=== PATIENT | male | born 1955 | race Two or more races ===

== ENCOUNTER 2016-10-27 22:42 | Observation (INO) | payer MEDICAID ==
[~2016-10-27 22:42] MED LIST: ADULT ASPIRIN81 MG PO; ADULT LOW DOSE81 MG PO; AMOXIL PO; ANAFRANIL75 MG PO; ATORVASTATIN CA20 M1 PO; AUGMENTIN 875-11 TAB PO; BENADRYL25 MG PO; BUDEPRION SR150 M1 PO; BYSTOLIC2.5 MG PO; BYSTOLIC5 MG PO; CATAPRES0.2 MG PO; CLARITIN10 M5 PO; EFFIENT10 MG/TAB PO; FLEXERIL10 MG PO; HYDROCODONE/APA1 CAP PO; LIPITOR20 MG PO; LORTAB 5/5001 EA PO; MELATONIN3 M2 PO; MOTRIN800 MG PO; NITROSTAT0.4 MG SL; NORCO 5/325 TAB1 TAB PO; NORVASC2.5 MG PO; NORVASC5 M1 PO; OMEPRAZOLE20 M2 PO; PERCOCET 5/3251 TAB PO; PRILOSEC2.5 MG PO; PRILOSEC20 MG PO; REMERON45 MG; REMERON45 MG PO; WELLBUTRIN SR150 MG; ZOLOFT; ZOLOFT100 MG; ZOLOFT100 MG PO
[2016-10-27 23:06] LABS: BASO % 1.1 % (0-2); BASO ABSOLUTE COUNT 0.1 tho/cmm (0.0-0.2); EOS % 4.4 % (0-7); EOSINOPHIL ABSOLUTE COUNT 0.4 tho/cmm (0.0-0.7); HCT-HEMATOCRIT 43.9 % (36.0-53.5); HGB-HEMOGLOBIN 14.6 gm/dl (13.5-17.0); IMMATURE GRANULOCYTES ABSOLUTE 0.01 tho/cmm (0-0.03); IMMATURE GRANULOCYTES PERCENT 0.1 % (0-0.3); LYMPH % 30.4 % (20-45); LYMPH ABSOLUTE COUNT 2.9 tho/cmm (0.8-4.5); MCH (MEAN CORPUSCULAR HGB) 27.6 pg (28.0-32.0); MCHC MEAN CORPUSCULAR HGB CONC 33.3 % (32.0-36.0); MEAN PLATELET VOLUME 10.3 cmc (9.4-12.4); MONO % 9.9 % (0-12); MONOCYTE ABSOLUTE COUNT 0.9 tho/cmm (0.0-1.2); NEUTROPHIL ABSOLUTE COUNT 5.1 tho/cmm (1.6-8.0); NEUTROPHIL-AUTOMATED 5.1 tho/cmm (1.6-8.0); NEUTROPHILS % 54.1 % (40-80); PLATELET COUNT 298 tho/cmm (150-450); RED BLOOD COUNT 5.29 mil/cmm (4.40-5.70); RED CELL DISTRIBUTION WIDTH 13.5 % (12.4-16.4); WHITE BLOOD COUNT 9.5 tho/cmm (4.0-10.0)
[2016-10-27 23:20] LABS: ANION GAP 11 mmol/L (0-20); BLOOD UREA NITROGEN 20 mg/dl (6-24); CARBON DIOXIDE-VENOUS 27 mmol/L (22-32); CHLORIDE 103 mmol/l (96-110); CREATININE 1.07 mg/dl (0.60-1.30); GLUCOSE 87 mg/dL (70-110); SODIUM 137 mmol/L (135-145); eGFR VALUE FOR BLACK 87 mL/Min
[2016-10-28] MEDS ORDERED: ASPIRIN81 M1 PO (01:02)
[2016-10-28] MEDS ORDERED: NITROGLYCERIN0.4 M2 SL (01:04)
[2016-10-28 01:40] LABS: MAGNESIUM 2.4 mg/dl (1.8-2.6)
[2016-10-28 11:04] LABS: ANION GAP 9 mmol/L (0-20); BLOOD UREA NITROGEN 15 mg/dl (6-24); CALCIUM 8.9 mg/dl (8.5-10.5); CARBON DIOXIDE-VENOUS 28 mmol/L (22-32); CHLORIDE 106 mmol/l (96-110); CREATININE 0.85 mg/dl (0.60-1.30); GLUCOSE 87 mg/dL (70-110); POTASSIUM 3.9 mmol/L (3.7-5.1); SODIUM 139 mmol/L (135-145); eGFR VALUE FOR BLACK >90 mL/Min
[2016-10-29 06:30] LABS: BASO % 0.7 % (0-2); BASO ABSOLUTE COUNT 0.1 tho/cmm (0.0-0.2); EOS % 3.4 % (0-7); EOSINOPHIL ABSOLUTE COUNT 0.3 tho/cmm (0.0-0.7); HCT-HEMATOCRIT 44.2 % (36.0-53.5); HGB-HEMOGLOBIN 14.5 gm/dl (13.5-17.0); IMMATURE GRANULOCYTES ABSOLUTE 0.02 tho/cmm (0-0.03); IMMATURE GRANULOCYTES PERCENT 0.2 % (0-0.3); LYMPH % 14.9 % (20-45); LYMPH ABSOLUTE COUNT 1.4 tho/cmm (0.8-4.5); MCH (MEAN CORPUSCULAR HGB) 26.9 pg (28.0-32.0); MCHC MEAN CORPUSCULAR HGB CONC 32.8 % (32.0-36.0); MCV (MEAN CELL VOLUME) 81.9 fl (82.0-96.0); MEAN PLATELET VOLUME 10.3 cmc (9.4-12.4); MONOCYTE ABSOLUTE COUNT 1.1 tho/cmm (0.0-1.2); NEUTROPHIL ABSOLUTE COUNT 6.7 tho/cmm (1.6-8.0); NEUTROPHIL-AUTOMATED 6.7 tho/cmm (1.6-8.0); NEUTROPHILS % 69.8 % (40-80); PLATELET COUNT 269 tho/cmm (150-450); RED CELL DISTRIBUTION WIDTH 13.6 % (12.4-16.4); WHITE BLOOD COUNT 9.7 tho/cmm (4.0-10.0)
[2016-10-29 06:57] LABS: ANION GAP 10 mmol/L (0-20); BLOOD UREA NITROGEN 16 mg/dl (6-24); CALCIUM 8.4 mg/dl (8.5-10.5); CARBON DIOXIDE-VENOUS 26 mmol/L (22-32); CHLORIDE 106 mmol/l (96-110); CREATININE 0.88 mg/dl (0.60-1.30); GLUCOSE 108 mg/dL (70-110); SODIUM 138 mmol/L (135-145); eGFR VALUE FOR BLACK >90 mL/Min
[2016-10-29] MEDS ORDERED: BRILINTA90 M1 PO (10:25)
[2016-10-29] MEDS ORDERED: TOPROL XL25 M1 PO (10:26)
[2016-10-29] MEDS ORDERED: PRINIVIL5 M1 PO (10:28)
== END 2016-10-29 14:00 ==
LOC: EDMED 22:42 → EMR2 10-28 00:29 → PCUA 10-28 01:42
PROVIDERS: Emergency Medicine; Internal Medicine Cardiovascular Disease; ADMIT Internal Medicine
PROC: B2111ZZ Fluoroscopy of Multiple Coronary Arteries using Low Osmolar Contrast (ICD-10-PCS; principal; 2016-10-28)
PROC: 027034Z Dilation of Coronary Artery, One Artery with Drug-eluting Intraluminal Device, Percutaneous Approach (ICD-10-PCS; 2016-10-28)
DX: I16.0 Hypertensive urgency (principal); I21.4 Non-ST elevation (NSTEMI) myocardial infarction; E78.5 Hyperlipidemia, unspecified; R07.9 Chest pain, unspecified; I25.10 Atherosclerotic heart disease of native coronary artery without angina pectoris; Z82.49 Family history of ischemic heart disease and other diseases of the circulatory system; Z95.5 Presence of coronary angioplasty implant and graft; Z98.890 Other specified postprocedural states
CPT/HCPCS: C1769; C1874; C1887; C1894; C9600-LD; G0378; J1644; J1650; J2250; J3010; J7030; Q9967

== ENCOUNTER 2016-11-11 16:21 | Observation (INO) | payer MEDICAID ==
[~2016-11-11 16:21] MED LIST changes: +ASPIRIN81 M1 PO; +BRILINTA90 M1 PO; +NITROGLYCERIN0.4 M2 SL; +PRINIVIL5 M1 PO; +TOPROL XL25 M1 PO
[2016-11-11] MEDS ORDERED: TOPROL XL25 M1 PO (16:36)
[2016-11-11 16:41] LABS: BASO % 0.8 % (0-2); BASO ABSOLUTE COUNT 0.1 tho/cmm (0.0-0.2); EOS % 2.9 % (0-7); EOSINOPHIL ABSOLUTE COUNT 0.3 tho/cmm (0.0-0.7); HCT-HEMATOCRIT 44.8 % (36.0-53.5); IMMATURE GRANULOCYTES ABSOLUTE 0.02 tho/cmm (0-0.03); IMMATURE GRANULOCYTES PERCENT 0.2 % (0-0.3); LYMPH % 27.1 % (20-45); LYMPH ABSOLUTE COUNT 2.4 tho/cmm (0.8-4.5); MCH (MEAN CORPUSCULAR HGB) 27.2 pg (28.0-32.0); MCHC MEAN CORPUSCULAR HGB CONC 33.5 % (32.0-36.0); MCV (MEAN CELL VOLUME) 81.3 fl (82.0-96.0); MEAN PLATELET VOLUME 10.3 cmc (9.4-12.4); MONO % 10.3 % (0-12); MONOCYTE ABSOLUTE COUNT 0.9 tho/cmm (0.0-1.2); NEUTROPHIL ABSOLUTE COUNT 5.3 tho/cmm (1.6-8.0); NEUTROPHIL-AUTOMATED 5.3 tho/cmm (1.6-8.0); NEUTROPHILS % 58.7 % (40-80); PLATELET COUNT 310 tho/cmm (150-450); RED BLOOD COUNT 5.51 mil/cmm (4.40-5.70); RED CELL DISTRIBUTION WIDTH 13.1 % (12.4-16.4)
[2016-11-11] MEDS ORDERED: PEPCID20 M1 PO (16:56)
[2016-11-11 16:58] LABS: ANION GAP 12 mmol/L (0-20); BLOOD UREA NITROGEN 23 mg/dl (6-24); CALCIUM 8.8 mg/dl (8.5-10.5); CARBON DIOXIDE-VENOUS 27 mmol/L (22-32); CHLORIDE 105 mmol/l (96-110); CREATININE 0.95 mg/dl (0.60-1.30); GLUCOSE 89 mg/dL (70-110); SODIUM 140 mmol/L (135-145); eGFR VALUE FOR BLACK >90 mL/Min
[2016-11-11 17:04] LABS: POTASSIUM 4.4 mmol/L (3.7-5.1)
[2016-11-11 21:19] LABS: AMYLASE 47 U/L (20-90); CKMB 1.3 ng/ml (<3.6); CREATINE PHOSPHOKINASE (CPK) 67 U/L (35-232); LIPASE 116 U/L (73-393)
[2016-11-12 00:52] LABS: CKMB 0.7 ng/ml (<3.6); CREATINE PHOSPHOKINASE (CPK) 63 U/L (35-232)
[2016-11-13] MEDS ORDERED: PROTONIX40 M2 PO (09:49)
== END 2016-11-13 10:34 ==
LOC: EDMED 16:21 → EMR2 17:38 → CAR1 18:53
PROVIDERS: Emergency Medicine; ADMIT Internal Medicine Clinical Cardiac Electrophysiology
DX: R07.9 Chest pain, unspecified (principal); I10 Essential (primary) hypertension; E78.5 Hyperlipidemia, unspecified; I25.2 Old myocardial infarction; I25.10 Atherosclerotic heart disease of native coronary artery without angina pectoris; Z79.899 Other long term (current) drug therapy; Z98.890 Other specified postprocedural states
CPT/HCPCS: G0378; J1885; J2270